=== PATIENT | female | born 1955 | race Caucasian/White ===

== ENCOUNTER → 2019-06-18 | Outpatient (CLI) | payer MEDICARE | LOC: MC.RAD 09:07 | DX: Z12.31 Encounter for screening mammogram for malignant neoplasm of breast (principal) ==

== ENCOUNTER 2022-05-02 13:39 | Emergency (ER) | payer MEDICARE ==
[~2022-05-02] VITALS: Ht 172.7 cm; Wt 95.5 kg
[2022-05-02 13:50] VITALS: BP 145/77; PULSE 69; TEMP 97.6
[2022-05-02] MEDS ORDERED: DITROPAN XL10 MG PO (13:54)
[2022-05-02] MEDS ORDERED: CALAN120 MG PO (13:55)
[2022-05-02] MEDS ORDERED: LIPITOR 10MG10 MG PO (13:55)
[2022-05-02] MEDS ORDERED: LOTENSIN20 MG PO (13:55)
== END 2022-05-02 16:11 | disposition home or self-care (01) ==
LOC: COL.ER 13:39
DX: S09.90XA Unspecified injury of head, initial encounter (principal); S00.83XA Contusion of other part of head, initial encounter; S40.022A Contusion of left upper arm, initial encounter; W10.8XXA Fall (on) (from) other stairs and steps, initial encounter

== ENCOUNTER 2023-01-26 05:22 | Day surgery (SDC) | payer MEDICARE ==
[2023-01-26] VITALS (9 sets, daily range): BP systolic 127–155; BP diastolic 61–79; PULSE 68–86; TEMP 97.4–97.6
[~2023-01-26] VITALS: Ht 172.7 cm; Wt 108.3 kg
[~2023-01-26 05:22] MED LIST: CALAN120 MG PO; DITROPAN XL10 MG PO; LIPITOR 10MG10 MG PO; LOTENSIN20 MG PO
[2023-01-26] MEDS ORDERED: NORCO 325 MG-51 TAB PO (09:04)
--- NOTE | 2023-01-26 12:50 | NUR ---
0950 RETURNS TO ROOM 8 PER CART.AWAKE, ALERT. RESP UNLABORED. HOB ELEVATED 40 DEGREES. VITAL SIGNS OBTAINED. ABD SOFT. INCISIONS X 4 SITES INTACT. NO REDNESS OR DRAINAGE. EXPRESSES COMFORT. SON IN ROOM. CALL LIGHT AT SIDE. 1010 TOLERATES PO JUICE WITHOUT NAUSEA 1025 REPORTS MODERATE DISCOMFORT. INCISIONS UNCHANGED 1040 TOLERATES PO MUFFIN WITHOUT NAUSEA 1056 PO PAIN MED GIVEN. HYDROCODONE 5/325 [employer] SYSTEM NOT OPERATING. UNABLE TO SCAN MED 1105 DISCHARGE INSTRUCTIONS REVIEWED. PATIENT VERBALIZES UNDERSTANDING. COPY PROVIDED IN DISCHARGE FOLDER. 1130 AWAKE, ALERT. AWAITNG DISCHARGE. [facility] WILL ARRIVE [phone]. UNABLE TO SCHEDULE EARLIER TIME 1200 NO CHANGE 1230 SITS IN CHAIR AT BEDSIDE. DRESSES SELF 1242 AMBULATES TO BATHROOM WITH STANDBY ASSIST. VOIDS WITHOUT DIFFICULTY 1251 PATIENT TRANSPORTED TO [facility] PER WHEELCHAIR. AWAITS ARRIVAL OF [facility] [facility]. SON SEATED AT SIDE
== END 2023-01-26 12:51 | disposition home or self-care (01) ==
LOC: SDCO 05:22
DX: K80.10 Calculus of gallbladder with chronic cholecystitis without obstruction (principal)
CPT/HCPCS: J0690; J1100; J1170; J1885; J2250; J2405; J2704; J3010; J7120